=== PATIENT | female | born 1950 | race Caucasian/White ===

== ENCOUNTER 2016-08-19 11:17 | Outpatient (CLI) | payer OTHER | END 2016-08-19 11:18 | disposition home or self-care (01) | LOC: DI 11:17 | DX: R06.00 Dyspnea, unspecified (principal) | CPT/HCPCS: 93306 ==

== ENCOUNTER 2017-11-27 10:15 | Outpatient (CLI) | payer MEDICARE, OTHER | END 2017-11-27 10:16 | disposition home or self-care (01) | LOC: DI 10:15 | PROVIDERS: ATTEND Family Medicine | DX: Z53.9 Procedure and treatment not carried out, unspecified reason (principal) ==

== ENCOUNTER 2017-12-05 11:30 | Outpatient (CLI) | payer MEDICARE, OTHER ==
--- NOTE | 2017-12-12 12:25 | Mammography Report ---
Reason: BILAT SCREEN w ETHAN Procedure Date: 12/05/2017 Accession Number: [id number] / [id number] Procedure: ALYSSA - Screening Mammo w/Ethan CPT Code: FULL RESULT: EXAM: Screening Mammo w/Ethan DATE: 12/05/2017 11:52 AM CLINICAL HISTORY: Routine screening TECHNIQUE: Bilateral CC and MLO views were obtained. COMPARISON: 04/06/2015, 12/24/2012, and 09/20/2011 FINDINGS: There are scattered fibroglandular densities. There is been no significant interval change No suspicious masses, clustered microcalcifications, or regions of architectural distortion are identified. IMPRESSION: Negative. RECOMMENDATION: Routine annual screening unless otherwise clinically indicated. BIRADS CATEGORY 1: Negative STANDARD QUALIFYING STATEMENTS: 1. This examination was not reviewed with the aid of Computer-Aided Detection (CAD). 2. A negative or benign imaging report should not delay biopsy if clinically suspicious findings are present. Consider surgical consultation if warrented. More than 5% of cancers are not identified by imaging. 3. Dense breasts may obscure an underlying neoplasm. 4. This examination was reviewed with the aid of 3D breast imaging (tomosynthesis).
== END 2017-12-05 11:31 | disposition home or self-care (01) ==
LOC: DI 11:30
PROVIDERS: ATTEND Family Medicine
DX: Z12.31 Encounter for screening mammogram for malignant neoplasm of breast (principal)
CPT/HCPCS: 77063; 77067

== ENCOUNTER 2020-10-15 12:31 | Outpatient (CLI) | payer MEDICARE, OTHER ==
--- NOTE | 2020-10-16 09:24 | XRAY Report ---
PROCEDURE: Hand 3 View BILAT INDICATIONS: BILATERAL SHOULDER PAIN, BILATERAL HAND PAIN, BILA TECHNIQUE: 3 views of the hand(s) acquired. COMPARISON: None. FINDINGS: Bones: No fractures or dislocations. Osteoarthritic changes are noted in bilateral wrist joints, MC P joints and interphalangeal joints with joint space narrowing and subchondral sclerosis. Subtle radi olucency involving ulnar aspect of right second and third proximal phalangeal bases are seen. Subtle radiolucency is also noted involving left second metacarpal head ulnar aspect. No suspicious bony les ions. Soft tissues: No suspicious soft tissue calcifications. IMPRESSION: 1. Osteoarthritic changes throughout bilateral hands and wrists. 2. Subtle radiolucencies involving left second metacarpal head and right second and third proximal ph alangeal bases and is concerning for early erosion secondary to inflammatory arthropathy. Clinical co rrelation is recommended. Reviewed by: Cesar Blum MD on 10/16/2020 9:23 AM PDT Approved by: Cesar Blum MD on 10/16/2020 9:23 AM PDT Station ID: [id number]
--- NOTE | 2020-10-16 09:25 | XRAY Report ---
PROCEDURE: Wrist 4 View BILAT INDICATIONS: BILATERAL SHOULDER PAIN, BILATERAL HAND PAIN, BILA TECHNIQUE: 8 views of the wrist were acquired. COMPARISON: None. FINDINGS: Bones: No fractures or dislocations. No suspicious bony lesions. Osteoarthritic changes throughout bilateral wrists are seen more prominent in bilateral first CMC joints and scaphotrapezial joints. F inding is slightly worse on the right side. No definite bony erosion is seen. Scaphoid view: Scaphoids are grossly intact. Soft tissues: No suspicious soft tissue calcifications. 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 No fracture or dislocation. No d efinite bony erosion. Reviewed by: Cesar Blum MD on 10/16/2020 9:23 AM PDT Approved by: Cesar Blum MD on 10/16/2020 9:23 AM PDT Station ID: [id number]
--- NOTE | 2020-10-16 09:31 | XRAY Report ---
PROCEDURE: Ankle 3 View BILAT INDICATIONS: CHRONIC BILATERAL ANKLE PAIN TECHNIQUE: 3 views of the ankle were acquired. COMPARISON: None FINDINGS: Bones: No fractures or dislocations. Ankle mortise is normally aligned. Osteoarthritic changes are seen in bilateral talonavicular joint and subtalar joint. Postsurgical changes in bilateral first met atarsal shafts are also seen. No suspicious bony lesions. Soft tissues: No tibiotalar joint effusion. Achilles tendon appears normal. IMPRESSION: No ankle fracture or dislocation. Mild ankle joint osteoarthritic changes. Ankle mortise is congruent. Reviewed by: Cesar Blum MD on 10/16/2020 9:30 AM PDT Approved by: Cesar Blum MD on 10/16/2020 9:30 AM PDT Station ID: [id number]
--- NOTE | 2020-10-16 09:47 | XRAY Report ---
PROCEDURE: Shoulder 3 View BILAT INDICATIONS: BILATERAL SHOULDER PAIN, BILATERAL HAND PAIN, BILA TECHNIQUE: 6 total views of the bilateral shoulders were acquired. COMPARISON: None. FINDINGS: Bones: No fractures or dislocations but there is moderate to moderately severe bilateral AC joint os teoarthritis slightly greater on the left than the right. No suspicious bony lesions. Visualized ri bs appear intact. Soft tissues: No suspicious soft tissue calcifications. IMPRESSION: No trauma found. Minimal glenohumeral joint osteoarthritis. Moderate to moderately sever e bilateral AC joint osteoarthritis greater on the left than the right. Reviewed by: Storm Astudillo MD on 10/16/2020 9:46 AM PDT Approved by: Storm Astudillo MD on 10/16/2020 9:46 AM PDT Station ID: [id number]
== END 2020-10-15 12:32 | disposition home or self-care (01) ==
LOC: DI.N 12:31
PROVIDERS: ATTEND Family Medicine
DX: M19.042 Primary osteoarthritis, left hand (principal); M19.041 Primary osteoarthritis, right hand; M19.032 Primary osteoarthritis, left wrist; M19.031 Primary osteoarthritis, right wrist; R93.6 Abnormal findings on diagnostic imaging of limbs; M19.072 Primary osteoarthritis, left ankle and foot; M19.071 Primary osteoarthritis, right ankle and foot; M19.012 Primary osteoarthritis, left shoulder; M19.011 Primary osteoarthritis, right shoulder

== ENCOUNTER 2020-11-02 11:39 | Outpatient (CLI) | payer MEDICARE, OTHER | END 2020-11-02 11:40 | disposition critical access hospital (66) | LOC: EMS 11:39 | DX: U07.1 COVID-19 (principal) | CPT/HCPCS: A0425; A0429 ==

== ENCOUNTER 2020-11-02 12:06 | Emergency (ER) | payer MEDICARE, OTHER ==
--- NOTE | 2020-11-02 12:30 | ED Physician Documentation ---
PD HPI URI - Stated complaint Stated Complaint: C+ DEHYDRATION - History obtained from History obtained from: Patient - History of Present Illness Timing - onset: How many days ago (10) Timing duration: Days (10) Timing details: Abrupt onset, Still present Associated symptoms: Fever, Chills, Dry cough, Dyspnea, NVD (has had decreased appetite with nausea, but no vomiting nor diarrhea. Feeling generally weak and also feels lightheaded with standing and walking.). No: Hemoptysis, Chest pain Contributing factors: Sick contact (she and her home tested positive for COVIDa week ago.), Unimmunized Improves by: Rest Worsened by: Activity Similar symptoms before: Has not had sx before Recently seen: Clinic (TeleHealth appt today and provider was prescribing Augmentin bid x 10 days, steroids for 5 days, Albuterol inhaler, Flovent, and Zofran. He also advised pt to come to ER for IV fluids as sounded dehydrated with tachycardia on walking, and for possibel MAB therapy.) Review of Systems Constitutional: reports: Fever (still with fevers today, on 10th day of illness.), Chills Nose: reports: Congestion. denies: Rhinorrhea / runny nose Throat: denies: Sore throat Cardiac: denies: Chest pain / pressure Respiratory: reports: Dyspnea, Cough. denies: Wheezing GI: reports: Nausea. denies: Abdominal Pain, Vomiting, Diarrhea Skin: denies: Rash Neurologic: reports: Generalized weakness, Headache. denies: Near syncope, Syncope, Altered mental status PD PAST MEDICAL HISTORY - Past Medical History Cardiovascular: High cholesterol, Arrhythmia Respiratory: None Endocrine/Autoimmune: None GI: Other : None HEENT: None Psych: None Musculoskeletal: Osteoarthritis Derm: None - Past Surgical History Past Surgical History: Yes General: Colonoscopy Ortho: Arthroscopic surgery /STUFFER: Hysterectomy Derm: Other - Present Medications Home Medications: Ambulatory Orders Medication Instructions Recorded Confirmed No Known Home Medications 11/02/20 11/02/20 - Allergies Allergies/Adverse Reactions: Allergies Allergy/AdvReac Type Severity Reaction Status Date / Time No Known Drug Allergies Allergy Verified 11/02/20 12:35 - Social History Does the pt smoke?: No Smoking Status: Never smoker Does the pt drink ETOH?: Yes Does the pt have substance abuse?: No - Immunizations Immunizations are current?: Yes PD ED PE NORMAL - Vitals Vital signs reviewed: Yes - General General: Alert and oriented X 3, No acute distress, Well developed/nourished - HEENT HEENT: Pharynx benign. No: Moist mucous membranes - Neck Neck: Supple, no meningeal sign, No adenopathy - Cardiac Cardiac: RRR, No murmur - Respiratory Respiratory: Clear bilaterally - Abdomen Abdomen: Soft, Non tender - Back Back: No CVA TTP - Derm Derm: Normal color, Warm and dry - Extremities Extremities: No tenderness to palpate, Normal ROM s pain, No edema, No calf tenderness / cord - Neuro Neuro: Alert and oriented X 3, No motor deficit, Normal speech Results - Vitals Vitals: Vital Signs - 24 hr 11/02/20 11/02/20 11/02/20 12:35 14:03 16:00 Temperature 37.1 C 37 C Heart Rate 88 85 97 Respiratory 16 18 20 Rate Blood Pressure 140/60 H 138/62 H 164/68 H O2 Saturation 100 99 96 Oxygen O2 Source Room air - Labs Labs: Laboratory Tests 11/02/20 11/02/20 13:25 13:25 WBC 3.2 L RBC 4.65 Hgb 13.4 Hct 40.6 MCV 87.3 MCH 28.8 MCHC 33.0 RDW 13.3 Plt Count MPV 11.3 H Neut # (Auto) 2.2 Lymph # (Auto) 0.8 L Caroline # (Auto) 0.2 Eos # (Auto) 0.0 Baso # (Auto) 0.0 Absolute Nucleated RBC 0.00 Nucleated RBC % 0.0 Platelet Estimate NORMAL (130-450,000) Platelet Morphology PLATELET CLUMPING RBC Morph Micro Appear NORMAL APPEARANCE Sodium 136 Potassium 4.2 Chloride 101 Carbon Dioxide 24 Anion Gap 11.0 BUN 8 Creatinine 0.6 Estimated GFR (MDRD) 99 Glucose 107 H Calcium 8.1 L Total Bilirubin 0.5 AST 108 H ALT 139 H Alkaline Phosphatase 112 Total Protein 6.5 L Albumin 3.5 Globulin 3.0 Albumin/Globulin Ratio 1.2 Lipase 36 PD MEDICAL DECISION MAKING - ED course Complexity details: considered differential (She has meds prescribed from TeleHealth provider today. can give initial dosing since pharmacies unavailable today. Given IV fluids for clinical dehydration. Discussed MAB therapy with her and she would like to receive it. No problems during ED stay. ), d/w patient Departure - Departure Disposition: 01 Home, Self Care Clinical Impression: COVID-19, General weakness Condition: Stable Record reviewed to determine appropriate education?: Yes Follow-Up: Camilo Bergeron DO [Primary Care Provider] - Comments: Start the medications prescribed by the telehealth provider. The inhaler and steroids and nausea medicine should be helpful. Antibiotics can make sense. I would probably suggest using them for 5 days rather than the 10 days but your choice. Stay well-hydrated. Continue Tylenol if needed for fevers. Discharge Date/Time: 11/02/20 16:54
[2020-11-02] MEDS ORDERED: SODIUM CHLORIDE 0.9% 1,000 ML IV STA ×2 (13:05→13:06)
[2020-11-02] MEDS ORDERED: DEXAMETHASONE 10 MG/ML VIAL IVP STA (13:05)
[2020-11-02] MEDS ORDERED: AMOX/CLAV 875 MG/125 MG TABLET PO STA (13:06)
[2020-11-02] MEDS ORDERED: CASIRIVIMAB/IMDEVIMAB 10 ML in SODIUM CHLORIDE 0.9% 50 ML IV STA (13:09)
[2020-11-02 13:36] LABS: BASOPHILS % (AUTO) 0.3 %; HCT - HEMATOCRIT 40.6 % (37.0-47.0); HGB - HEMOGLOBIN 13.4 g/dL (12.0-16.0); LYMPHOCYTES # (AUTO) 0.8 10^3/uL (1.5-3.5); LYMPHOCYTES % (AUTO) 24.5 %; MEAN CORPUSCULAR HEMOGLOBIN 28.8 pg (27.0-31.0); MEAN CORPUSCULAR VOLUME 87.3 fL (81.0-99.0); MEAN PLATELET VOLUME 11.3 fL (7.9-10.8); MONOCYTES # (AUTO) 0.2 10^3/uL (0.0-1.0); NEUTROPHILS # (AUTO) 2.2 10^3/uL (1.5-6.6); NEUTROPHILS % (AUTO) 68.9 %; RED BLOOD COUNT 4.65 10^6/uL (4.20-5.40); RED CELL DISTRIBUTION WIDTH 13.3 % (12.0-15.0); WHITE BLOOD COUNT 3.2 x10^3/uL (4.8-10.8)
[2020-11-02 13:49] LABS: ALBUMIN 3.5 g/dL (3.2-5.5); ALBUMIN/GLOBULIN RATIO 1.2 (1.0-2.2); BILIRUBIN,TOTAL 0.5 mg/dL (0.2-1.0); CALCIUM 8.1 mg/dL (8.5-10.3); CREATININE 0.6 mg/dL (0.4-1.0); POTASSIUM 4.2 mmol/L (3.5-5.0); TOTAL PROTEIN 6.5 g/dL (6.7-8.2)
[2020-11-02 13:54] LABS: PLATELET ESTIMATE, MANUAL NORMAL (130-450,000) (NORMAL); PLATELET MORPHOLOGY PLATELET CLUMPING (NORMAL); RBC MORPHOLOGY (MULTIPLE) NORMAL APPEARANCE (NORMAL)
[2020-11-02 16:22] VITALS: BP 164/68
== END 2020-11-02 16:54 | disposition home or self-care (01) ==
LOC: EDUNIT# → ED 12:06
DX: U07.1 COVID-19 (principal); E86.0 Dehydration; R53.1 Weakness
CPT/HCPCS: 36415; 80053; 83690; 85025; 96361; 96374; 99284; A9270; J7040; M0243; Q0244

== ENCOUNTER 2020-11-02 16:57 | Outpatient (CLI) | payer MEDICARE, OTHER | END 2020-11-02 16:58 | disposition home or self-care (01) | LOC: EMS 16:57 | PROVIDERS: ATTEND Emergency Medicine | DX: U07.1 COVID-19 (principal) | CPT/HCPCS: A0425; A0428 ==

== ENCOUNTER 2021-11-05 10:13 | Outpatient (CLI) | payer MEDICARE, OTHER ==
--- NOTE | 2021-11-08 10:41 | Ultrasound Report ---
LIMITED ULTRASOUND OF RIGHT BREAST: 11/05/2021 CLINICAL: Patient returns today to evaluate a focal asymmetry in the right breast. Comparison is made to exams dated: 11/05/2021 mammogram, 10/13/2021 mammogram, 12/05/2017 mammogram - Merged with [facility], 04/06/2015 mammogram, and 09/20/2011 mammogram - [facility]. Ultrasound of the right breast 11-12 o'clock region was performed on the area of interest. Anthony scal e images of the real-time examination were reviewed. There is no sonographic abnormality seen in the right breast to correspond with the mammographic find ing. IMPRESSION: NEGATIVE There is no sonographic evidence of malignancy. There is no sonographic abnormality seen in the right breast to correspond with the mammographic find ing. However, in retrospect, this focal asymmetry was likely present on the 2018 mammogram and is si milar in size. This suggests this asymmetry is most consistent with normal fibroglandular tissue and is benign. A 1 year screening mammogram is recommended. This exam was interpreted at Station ID: [id number]. Electronically Signed By: Karen Beltran M.D. lk/:11/05/2021 11:32:25 Ultrasound BI-RADS: 1 Negative BI-RADS CATEGORY: (1) - 1 RECOMMENDATION: (ANNUAL) - Recommend routine annual screening mammography. [id number] 1 year screening LATERALITY: (B)
--- NOTE | 2021-11-08 10:41 | Mammography Report ---
UNILATERAL RIGHT DIGITAL DIAGNOSTIC MAMMOGRAM 3D/2D: 11/05/2021 CLINICAL: Patient returns today to evaluate a focal asymmetry in the right breast. Comparison is made to exams dated: 10/13/2021 mammogram, 12/05/2017 mammogram - [facility], 04/06/2015 mammogram, and 09/20/2011 mammogram - [facility]. There are scattered areas of fibroglandular density in the right breast (category b / 25%-50% glandul ar tissue). The focal asymmetry in the right breast at 12 o'clock middle depth is seen in additional views. No other significant masses or calcifications are seen in the breast. IMPRESSION: INCOMPLETE: NEEDS ADDITIONAL IMAGING EVALUATION The focal asymmetry in the right breast is indeterminate. An ultrasound is recommended. Based on the Tyrer Cuzick model (a risk assessment model) the patients lifetime risk is 10.1% and he r 10 year risk is 6.0%. According to the ACR, ACS, and NCCN guidelines, an annual breast MRI exam kurtis ng with mammogram is recommended if the patients lifetime risk is 20% or greater. This exam was interpreted at Station ID: [id number]. NOTE: For mammograms, a report in lay terms will be sent to the patient. Approximately 15% of breast malignancies will not be visualized mammographically. In the management of a palpable breast mass, a negative mammogram must not discourage biopsy of a clinically suspicious lesion. Electronically Signed By: Karen Beltran M.D. lk/:11/05/2021 11:29:56 ACR BI-RADS Category 0: Incomplete 3340F PARENCHYMAL PATTERN: (A) - The breast(s) demonstrate(s) scattered fibroglandular densities. BI-RADS CATEGORY: (0) - 0 Ultrasound [id number] Immediate follow-up LATERALITY: (B)
== END 2021-11-05 10:14 | disposition home or self-care (01) ==
LOC: DI 10:13
PROVIDERS: ATTEND Family Medicine
DX: R92.8 Other abnormal and inconclusive findings on diagnostic imaging of breast (principal)